=== PATIENT | male | born 1930 | race Caucasian/White ===

== ENCOUNTER 2021-06-06 08:01 | Emergency (ER) | payer OTHER, BC ==
[~2021-06-06] VITALS: Ht 177.8 cm; Wt 90.9 kg
[~2021-06-06 08:01] MED LIST: ALB0.5UD NEB; AMIT-189 PO; ATR0.5NEB IH; BECL8.7A7 INH; CALC-159 PO; CARV-50 PO; CLOB15CR11 TOP; FISH1CAP15 PO; GINKO BILOBA PO; GLUC100017 PO; LORA-512 PO; LOSA50TA3 PO; MOME17SP5 NS; MULT-1085 PO; UBID100C45 PO; VITA1TAB20 PO; VITC500T PO; [UNRECOGNIZED DRUG - OTHER] PO
[2021-06-06] MEDS ORDERED: HYDROcodone/acetaminophen 5mg/325mg tablet PO ONE (08:15)
--- NOTE | 2021-06-06 08:28 | NUR ---
Pt to XR. Helped pt self-cath. 600ml out
--- NOTE | 2021-06-06 09:06 | NUR ---
Pt's wounds cleaned and bandaged. Non-stick dressings applied. Kerlex and coban. Pt ready for d/c trying to find a ride to [facility] in [place].
--- NOTE | 2021-06-06 09:28 | NUR ---
Pt's friend called and is willing to picker tender the pt and take him back home.
[2021-06-06 09:31] VITALS: BP 187/99
== END 2021-06-06 09:51 | disposition home or self-care (01) ==
LOC: ER 08:02
DX: M79.602 Pain in left arm (principal); R07.9 Chest pain, unspecified; M54.9 Dorsalgia, unspecified; I10 Essential (primary) hypertension; Z88.1 Allergy status to other antibiotic agents; V87.7XXA Person injured in collision between other specified motor vehicles (traffic), initial encounter; Z88.8 Allergy status to other drugs, medicaments and biological substances; Y93.89 Activity, other specified; Y92.89 Other specified places as the place of occurrence of the external cause; Y99.8 Other external cause status
CPT/HCPCS: 71045; 72100; 99284